=== PATIENT | female | born 1965 | race Caucasian/White ===

== ENCOUNTER 2016-05-10 21:00 | Emergency (ER) | payer BC ==
[2016-05-10 20:43] LABS: WBC (NOT ORDERED) (RFLEX) 0 (0-5)
[2016-05-10 20:52] LABS: BASOPHILS 0.2 %; BASOPHILS ABSOLUTE 0.01 10/3/uL (0.0-0.16); EOSINOPHILS 1.3 %; EOSINOPHILS ABSOLUTE 0.07 10/3/uL (0.0-0.53); ER CBC TAT 0 Hrs 08 Mins; HEMATOCRIT 39.1 % (36.0-48.0); HEMOGLOBIN 14.1 g/dL (12.0-16.0); IMMATURE GRANULOCYTES 0.2 %; IMMATURE GRANULOCYTES ABSOLUTE 0.01 10/3/uL (0.0-0.11); LYMPHOCYTES 22.3 %; LYMPHOCYTES ABSOLUTE 1.17 10/3/uL (0.67-4.30); MEAN CORPUS HGB CONC 36.1 g/dL (32.0-36.0); MEAN CORPUSCULAR HEMOGLOB 31.3 pg (26.0-34.0); MEAN CORPUSCULAR VOLUME 86.7 fL (80-100); MEAN PLATELET VOLUME 9.3 fL (9.2-13.0); MONOCYTES 7.4 %; MONOCYTES ABSOLUTE 0.39 10/3/uL (0.21-1.20); NEUTROPHILS 68.6 %; NEUTROPHILS ABSOLUTE 3.59 10/3/uL (2.02-8.40); PLATELET COUNT 163 10/3/uL (150-400); RBC DISTRIBUTION WIDTH 12.3 % (12.0-16.0); RED CELL COUNT 4.51 10/6/uL (4.0-5.6); WHITE BLOOD CELLS 5.2 10/3/uL (4.5-10.5)
[2016-05-10 20:53] LABS: MANUAL DIFF NO %
[~2016-05-10 21:00] MED LIST: ACET500CAP PO; ADVIL PO; AMOX250 PO; AMOXICILLIN250 MG PO; CEFAZ1 IV; DURICEFSUS PO; EFFEX37.5 PO; GOODY'S BODY P1 EACH PO; GOODY'S EX-STR1 EAC1 PO; HALAVEN1 MG/2 ML; HERCEPTIN440 MG IV; IBU-200200 MG PO; IBU400; MAGNESIUM; MAGOX4 PO; MELATONIN GUMMY PO; MELATONIN5 M1 PO; MOTRIN IB200 MG PO; MULTIPLE VIT PO; MULTIVITAMI1 PO; NOLV10 PO; NORCO1 TA1; PENICILLN VK500 MG; PROBIOTIC PO; TAMOXIFEN20 M1 PO; TUMS E-X750 M2 PO; TYLENOL COLD PO; VALTREX1 GM PO; ZYVOXPO PO; [UNRECOGNIZED DRUG - OTHER]
[2016-05-10 21:05] LABS: ALBUMIN 3.8 G/DL (3.5-5.0); BUN (BLOOD UREA NITROGEN) 13 MG/DL (6-23); CHLORIDE, SERUM 102 MMOL/L (96-112); CREATININE 1.05 MG/DL (0.55-1.02); GFR AFRICAN AMERICAN 72 ML/MIN (>=60); GFR NON AFRICAN AMERICAN 62 ML/MIN (>=60); GLOBULIN 3.8 G/DL (2.5-4.1); POTASSIUM, SERUM 4.1 MMOL/L (3.5-5.3); SGOT(AST) 109 U/L (5-40); SGPT(ALT) 137 U/L (5-65); SODIUM, SERUM 139 MMOL/L (135-148); TOTAL BILIRUBIN 0.3 MG/DL (0-1.2); TOTAL PROTEIN 7.6 G/DL (6.0-8.5)
[2016-05-10 21:06] LABS: ALKALINE PHOSPHATASE 112 U/L (45-117); CO2 (CARBON DIOXIDE) 27 MMOL/L (24-34); GLUCOSE, SERUM 283 MG/DL (60-99)
[2016-05-10 21:11] LABS: ASCORBIC ACID (UR NOT ORDER) NEG (NEG); BILIRUBIN, URINE NEGATIVE (NEG); ER URINALYSIS TAT 0 Hrs 32 Mins; KETONE, URINE NEGATIVE (NEG); LEUKOCYTE ESTERASE(NOT OR NEG (NEG); NITRITE (URINE) NEG (NEG)
[2016-05-10 21:16] LABS: INFLUENZA A SCREEN NEGATIVE (NEGATIVE); INFLUENZA B SCREEN NEGATIVE (NEGATIVE)
[2016-07-15] MEDS ORDERED: LOTE20 PO (15:14)
[2016-07-15] MEDS ORDERED: LANTUSCART SC (15:14)
[2016-07-15] MEDS ORDERED: ARIMIDEX1 PO (15:14)
[2016-07-20] MEDS ORDERED: TURMERIC PO (12:22)
[2016-07-20] MEDS ORDERED: MAG CITRATE PO (12:23)
[2016-07-26] MEDS ORDERED: AMOX250 PO (16:29)
== END 2016-05-11 02:32 | disposition home or self-care (01) ==
LOC: ER 21:00
PROVIDERS: Emergency Medicine
DX: B02.8 Zoster with other complications (principal); M79.1 Myalgia; I88.9 Nonspecific lymphadenitis, unspecified; Z85.3 Personal history of malignant neoplasm of breast; Z79.82 Long term (current) use of aspirin; Z79.899 Other long term (current) drug therapy
CPT/HCPCS: 71010; 80053; 81001; 85025; 87040; 87804; 99284; A9270-GY

== ENCOUNTER 2016-07-28 06:41 | Day surgery (SDC) | payer BC ==
--- NOTE | ~2016-07-28 | OP ---
Record Of Operation [facility] [address] [place]. [address] NAME: KELL TROTTER : 67 [place]US : [place] [facility] [place] [id number] AGE: 50 ADM/REG DATE : 07/28/16 MR#: [id number] REPORT SERV DATE: 07/28/16 DICTATED BY: MARJORIE MONREAL JR. DATE: 07/28/16 REPORT STATUS : Draft TRANSCRIBED BY: MARGOTH DATE: 07/28/16 DATE OF PROCEDURE: REASON FOR SURGERY: This 50-year-old patient, re-presented with metastatic breast cancer involving the bone. She is scheduled to restart chemotherapy. She has had significant problems with lymphedema of the right upper extremity, following axillary dissection and radiation therapy for what was previously node positive malignancy. PREOPERATIVE DIAGNOSIS: Metastatic breast cancer. POSTOPERATIVE DIAGNOSIS: Metastatic breast cancer. SURGEON: Marjorie Monreal M.D. SURGERY PERFORMED: Insertion of PowerPort venous port. DESCRIPTION OF PROCEDURE: With anesthesia support, the patient was prepped and draped in supine position in usual sterile fashion. 1% Xylocaine was used to anesthetize the old incision in the left infraclavicular fossa. The needle and wire were inserted into the vein without difficulty and documented to be in correct position on fluoroscopy. The area was further anesthetized and incision was made. The port site was created. The catheter was inserted into the vein through a Tear-Away introducer. The system was assembled, aspirated, and flushed, and secured to the skin with Prolene. The wound was irrigated and hemostasis was obtained. Final fluoroscopy revealed correct positioning of the catheter tip without kinking or notching. The wound was closed with three layers of Monocryl. The patient tolerated the procedure well without complications. ESTIMATED BLOOD LOSS: 5 mL. SPONGE COUNT: Correct. /MARGOTH Marjorie Monreal Jr., M.D. / [id number] CC: Rajesh Fleming Jr., M.D. [facility] Salma George M.D.
[~2016-07-28 06:41] MED LIST changes: +ARIMIDEX1 PO; +LANTUSCART SC; +LOTE20 PO; +MAG CITRATE PO; +TURMERIC PO
== END 2016-07-28 10:56 | disposition home or self-care (01) ==
LOC: SDC 06:41
PROVIDERS: Surgery Surgical Oncology
PROC: 0JHD0WZ Insertion of Totally Implantable Vascular Access Device into Right Upper Arm Subcutaneous Tissue and Fascia, Open Approach (ICD-10-PCS; principal; 2016-07-28 07:45)
DX: C79.81 Secondary malignant neoplasm of breast (principal); E11.9 Type 2 diabetes mellitus without complications; E66.9 Obesity, unspecified; Z90.710 Acquired absence of both cervix and uterus; Z98.890 Other specified postprocedural states
CPT/HCPCS: 71010; 77001; 82962; 93005; 93306; C1751; J0690; J2250; J3010